=== PATIENT | male | born 1965 | race Caucasian/White ===

== ENCOUNTER 2016-12-24 08:26 | Inpatient (IN) | payer OTHER ==
[~2016-12-24] VITALS: Ht 185.4 cm; Wt 85.4 kg
--- NOTE | ~2016-12-24 | DS ---
[place], [place] DISCHARGE SUMMARY NAME: NAATLIE CARRILLO UNIT #: [id number] ROOM: 403 DOCTOR: TONO FRASER MD BIRTHDATE: [birth year] DOS: 12/25/2016 FINAL DIAGNOSES: Chronic obstructive pulmonary disease with acute exacerbation and chest pain, tachycardia, tobacco abuse, hypertension, hyperlipidemia, osteoporosis and sciatica. HOSPITAL COURSE: The patient is doing good. He does not have any chest pain. His CK and troponin levels are normal. CTA of chest is negative. CBC showed white count of 12,000, hemoglobin 15.5 and hematocrit 44.7. Hemoglobin A1c is 5.4. Basic metabolic profile showed glucose of 149. Other values are normal. Vitamin D and folic acid levels are also normal. His blood pressure is 114/74, pulse 57, respirations 18 and temperature 97.5. The patient will continue taking his home medications. He is very, very strongly advised to stop smoking and I have started him on Nicoderm patch 21 mg daily and he will be seen in the office next week by Dr. John . TONO FRASER MD CM:STEPHEN [id number] TONO FRASER MD 12/25/16 1242 interface
[~2016-12-24 08:26] MED LIST: 'PARAFON FORTE500 M1 PO; ALENDRONATE SOD70 M1 PO; ALENDRONATE SOD70 MG PO; AMOXICILLIN500 MG PO; CIPRO500 MG PO; CLARITIN10 MG PO; CYCLOBENZAPRINE10 MG PO; DELTASONE20 M1 PO; FLEXERIL10 MG PO; FLEXERIL5 MG PO; FLONASE ALLERG9.9 ML NS; HYDROCODONE BIT1 T11 PO; IBU800 M1 PO; KETOPROFEN75 MG PO; LIPITOR20 MG PO; LISINOPRIL10 M1 PO; LOPRESSOR100 M1 PO; METOPROLOL SUC100 M1 PO; MOTRIN800 MG PO; NAPROSYN500 MG PO; NORCO 325 MG-51 TAB PO; OMEPRAZOLE D/R20 MG PO; OSCAL ULTRA 6001 TA1 PO; PEN-VK500 MG PO; PENICILLIN VK500 MG PO; PERCOCET 325 MG1 TA7 PO; PREDNICOT20 MG PO; PREDNISONE10 MG PO; PREDNISONE50 MG PO; PRILOSEC OTC20 MG PO; PROAIR HFA8.5 GM IH; PROVENTIL0.09 MG/AC IH; TESSALON PERLE200 MG PO; TRIMOX500 MG PO; VIBRAMYCIN100 MG PO; VICODIN ES 7501 TAB PO; VITAMIN D50000 I3 PO; ZYRTEC10 MG PO
[2016-12-24] MEDS ORDERED: CYCLOBENZAPRINE10 MG PO (08:43)
[2016-12-24] MEDS ORDERED: COZAAR100 MG PO (08:44)
[2016-12-24 09:02] LABS: BASO % 0.3 % (0.0-1.0); EOS # 0.1 10*3/uL (0.0-0.4); HEMATOCRIT 46.5 % (42.0-52.0); HEMOGLOBIN 16.3 g/dl (14.0-18.0); LYMPH # 1.6 10*3/uL (1.3-4.4); MEAN CELL VOLUME 90.8 fl (80.0-94.0); MEAN CORPUSCULAR HGB 31.8 pg (27.0-31.0); MEAN CORPUSCULAR HGB CONC 35.1 g/dl (33.0-37.0); MONO # 0.9 10*3/uL (0.1-1.0); MONO % 13.8 % (3.0-9.0); NEUT # 3.8 10*3/uL (2.3-7.9); NEUT % 58.7 % (47.0-73.0); PLATELET COUNT AUTOMATED 207 10*3/uL (130-400); RED BLOOD COUNT 5.12 10*6/uL (4.50-5.90); RED CELL DISTRI WIDTH 12.4 % (0-14.5); WHITE BLOOD COUNT 6.5 10*3/uL (4.8-10.8)
[2016-12-24 09:11] LABS: PROTHROMBIN TIME 10.1 SECONDS (9.0-12.4)
[2016-12-24 09:19] LABS: ALKALINE PHOSPHATASE 100 U/L (45-117); BILIRUBIN, TOTAL 0.5 mg/dl (0.2-1.0); BUN 10 mg/dl (7-24); C-REACTIVE PROTEIN 0.43 MG/DL (0-0.3); CARBON DIOXIDE 27 mmol/L (21-32); CHLORIDE 103 mmol/L (98-107); CKMB 0.7 ng/ml (0.5-3.6); CPK 77 U/L (39-308); EST GLOM FILT AFRICAN AMERICAN > 60 ml/min; GLUCOSE 104 mg/dL (65-99); MAGNESIUM 2.1 mg/dL (1.5-2.1); POTASSIUM 4.2 mmol/L (3.5-5.1); SGOT/AST 10 IU/L (3-35); SGPT/ALT 23 U/L (12-78); SODIUM 139 mmol/L (136-145); TOTAL PROTEIN 7.5 gm/dL (6.4-8.2)
[2016-12-24 09:21] LABS: TROPONIN I < 0.015 ng/ml (<0.045)
[2016-12-24 12:11] LABS: CKMB 0.8 ng/ml (0.5-3.6); CPK 71 U/L (39-308)
[2016-12-24 12:12] LABS: TROPONIN I < 0.015 ng/ml (<0.045)
[2016-12-24 18:09] LABS: CKMB 0.9 ng/ml (0.5-3.6); CPK 63 U/L (39-308)
[2016-12-24 18:11] LABS: TROPONIN I < 0.015 ng/ml (<0.045)
[2016-12-25 07:23] LABS: BASO % 0.1 % (0.0-1.0); HEMATOCRIT 44.7 % (42.0-52.0); HEMOGLOBIN 15.5 g/dl (14.0-18.0); IG # 0.1 10*3/uL (0.0-0.1); LYMPH # 1.4 10*3/uL (1.3-4.4); LYMPH % 11.7 % (27.0-41.0); MEAN CELL VOLUME 91.8 fl (80.0-94.0); MEAN CORPUSCULAR HGB 31.8 pg (27.0-31.0); MEAN CORPUSCULAR HGB CONC 34.7 g/dl (33.0-37.0); MEAN PLATELET VOLUME 9.1 fl (9.6-12.3); MONO # 0.8 10*3/uL (0.1-1.0); MONO % 6.6 % (3.0-9.0); NEUT # 9.7 10*3/uL (2.3-7.9); PLATELET COUNT AUTOMATED 224 10*3/uL (130-400); RED BLOOD COUNT 4.87 10*6/uL (4.50-5.90); RED CELL DISTRI WIDTH 12.2 % (0-14.5)
[2016-12-25 07:37] LABS: HEMOGLOBIN A1c 5.4 % (4.8-5.6)
[2016-12-25 07:49] LABS: BUN 14 mg/dl (7-24); CARBON DIOXIDE 25 mmol/L (21-32); CHLORIDE 105 mmol/L (98-107); CHOLESTEROL 183 mg/dL (<200); EST GLOM FILT AFRICAN AMERICAN > 60 ml/min; FREE T4 0.97 ng/dl (0.76-1.46); GLUCOSE 149 mg/dL (65-99); HDL CHOLESTEROL 40 mg/dl (40-60); LDL CHOLESTEROL 120 mg/dL (9-159); MAGNESIUM 2.1 mg/dL (1.5-2.1); PHOSPHOROUS 3.6 mg/dL (2.5-4.9); POTASSIUM 4.6 mmol/L (3.5-5.1); SODIUM 141 mmol/L (136-145); TRIGLYCERIDES 113 mg/dl (<150); VLDL CHOLESTEROL 23 mg/dL (6-40)
[2016-12-25 07:59] LABS: THYROID STIM HORMONE (HS) 0.371 uIU/ml (0.358-4.75)
[2016-12-25 08:09] LABS: FOLIC ACID 12.66 ng/mL (>5.38)
[2016-12-25] MEDS ORDERED: KROGER NIC21 MG/24 H T (12:04)
== END 2016-12-25 12:51 | disposition home or self-care (01) | DRG 391 ==
LOC: ED 08:26 → EDHOLD 10:04 → 4E 10:27
PROVIDERS: Emergency Medicine; Student in an Organized Health Care Education/Training Program
DX: K21.9 Gastro-esophageal reflux disease without esophagitis (principal); J18.9 Pneumonia, unspecified organism; J44.1 Chronic obstructive pulmonary disease with (acute) exacerbation; J44.0 Chronic obstructive pulmonary disease with (acute) lower respiratory infection; I10 Essential (primary) hypertension; R00.0 Tachycardia, unspecified; E78.5 Hyperlipidemia, unspecified; M81.0 Age-related osteoporosis without current pathological fracture; M54.30 Sciatica, unspecified side; F17.200 Nicotine dependence, unspecified, uncomplicated; Z82.3 Family history of stroke; Z80.1 Family history of malignant neoplasm of trachea, bronchus and lung; Z79.899 Other long term (current) drug therapy

== ENCOUNTER → 2017-03-24 | Outpatient (CLI) | payer OTHER ==
[~2017-03-24] MED LIST changes: +COZAAR100 MG PO; +KROGER NIC21 MG/24 H T
== END | disposition home or self-care (01) ==
LOC: RAD 15:23
DX: M54.5 Low back pain (principal); M81.0 Age-related osteoporosis without current pathological fracture

== ENCOUNTER 2017-04-05 15:38 | Emergency (ER) | payer OTHER ==
[~2017-04-05] VITALS: Ht 185.4 cm; Wt 82.6 kg
[2017-04-05] MEDS ORDERED: GOOD NEIGHBOR L10 MG PO (15:45)
[2017-04-05] MEDS ORDERED: CYCLOBENZAPRINE5 M3 PO (16:54)
[2017-04-05] MEDS ORDERED: MEDROL DOSEPAK4 MG PO (16:54)
== END 2017-04-05 19:55 | disposition home or self-care (01) ==
LOC: ED 15:38
DX: G89.29 Other chronic pain (principal); M54.5 Low back pain; F17.200 Nicotine dependence, unspecified, uncomplicated; Z79.899 Other long term (current) drug therapy

== ENCOUNTER 2017-05-10 20:56 | Emergency (ER) | payer OTHER ==
[~2017-05-10] VITALS: Ht 185.4 cm; Wt 81.2 kg
[~2017-05-10 20:56] MED LIST changes: +CYCLOBENZAPRINE5 M3 PO; +GOOD NEIGHBOR L10 MG PO; +MEDROL DOSEPAK4 MG PO
[2017-05-10] MEDS ORDERED: LOSARTAN POTAS100 M1 PO (21:07)
== END 2017-05-10 21:39 | disposition home or self-care (01) ==
LOC: ED 20:56
DX: S81.811A Laceration without foreign body, right lower leg, initial encounter (principal); J44.9 Chronic obstructive pulmonary disease, unspecified; E78.5 Hyperlipidemia, unspecified; I10 Essential (primary) hypertension; M81.0 Age-related osteoporosis without current pathological fracture; Z79.899 Other long term (current) drug therapy; Z87.891 Personal history of nicotine dependence; W45.8XXA Other foreign body or object entering through skin, initial encounter; Y93.89 Activity, other specified; Y92.89 Other specified places as the place of occurrence of the external cause; Y99.8 Other external cause status

== ENCOUNTER 2017-07-14 13:05 | Emergency (ER) | payer OTHER ==
[~2017-07-14] VITALS: Ht 182.8 cm; Wt 80.3 kg
[~2017-07-14 13:05] MED LIST changes: +LOSARTAN POTAS100 M1 PO
[2017-07-14] MEDS ORDERED: NAPROSYN500 MG PO (13:57)
== END 2017-07-14 14:37 | disposition home or self-care (01) ==
LOC: ED 13:05
DX: M25.561 Pain in right knee (principal); F17.200 Nicotine dependence, unspecified, uncomplicated

== ENCOUNTER 2017-07-27 12:16 | Emergency (ER) | payer OTHER ==
[~2017-07-27] VITALS: Ht 182.8 cm; Wt 82.1 kg
[2017-07-27] MEDS ORDERED: ULTRAM50 MG PO (13:06)
== END 2017-07-27 14:32 | disposition home or self-care (01) ==
LOC: ED 12:16
DX: M25.561 Pain in right knee (principal); Z79.899 Other long term (current) drug therapy; F17.200 Nicotine dependence, unspecified, uncomplicated

== ENCOUNTER 2017-09-08 13:56 | Emergency (ER) | payer OTHER ==
[~2017-09-08] VITALS: Wt 83.0 kg
[~2017-09-08 13:56] MED LIST changes: +ULTRAM50 MG PO
== END 2017-09-08 15:18 | disposition home or self-care (01) ==
LOC: ED 13:56
DX: M25.461 Effusion, right knee (principal); F17.200 Nicotine dependence, unspecified, uncomplicated; J44.1 Chronic obstructive pulmonary disease with (acute) exacerbation; I10 Essential (primary) hypertension; E78.5 Hyperlipidemia, unspecified

== ENCOUNTER 2017-09-26 11:43 | Emergency (ER) | payer OTHER ==
[~2017-09-26] VITALS: Ht 185.4 cm; Wt 83.0 kg
[2017-09-26] MEDS ORDERED: NAPROSYN500 MG PO (12:08)
== END 2017-09-26 12:18 | disposition home or self-care (01) ==
LOC: ED 11:43
DX: M25.561 Pain in right knee (principal); F17.210 Nicotine dependence, cigarettes, uncomplicated; Z79.899 Other long term (current) drug therapy

== ENCOUNTER → 2017-10-06 | Outpatient (CLI) | payer OTHER | END | disposition home or self-care (01) | LOC: MRI 11:00 | DX: Z01.818 Encounter for other preprocedural examination (principal); S83.231A Complex tear of medial meniscus, current injury, right knee, initial encounter; S83.211A Bucket-handle tear of medial meniscus, current injury, right knee, initial encounter; S86.911A Strain of unspecified muscle(s) and tendon(s) at lower leg level, right leg, initial encounter; X58.XXXA Exposure to other specified factors, initial encounter; Y93.89 Activity, other specified; Y92.89 Other specified places as the place of occurrence of the external cause; Y99.8 Other external cause status ==

== ENCOUNTER 2017-11-17 18:00 | Emergency (ER) | payer OTHER ==
[~2017-11-17] VITALS: Ht 185.4 cm; Wt 80.7 kg
[2017-11-17] MEDS ORDERED: NAPROSYN500 MG PO (18:35)
[2017-11-17] MEDS ORDERED: CEPHALEXIN500 M1 PO (18:35)
== END 2017-11-17 18:41 | disposition home or self-care (01) ==
LOC: ED 18:00
DX: L03.012 Cellulitis of left finger (principal); F17.200 Nicotine dependence, unspecified, uncomplicated; Z98.890 Other specified postprocedural states; Z79.899 Other long term (current) drug therapy

== ENCOUNTER 2017-12-29 12:41 | Emergency (ER) | payer OTHER ==
[~2017-12-29] VITALS: Ht 185.4 cm; Wt 83.5 kg
[~2017-12-29 12:41] MED LIST changes: +CEPHALEXIN500 M1 PO
[2017-12-29] MEDS ORDERED: PREDNISONE50 MG PO (13:08)
== END 2017-12-29 13:19 | disposition home or self-care (01) ==
LOC: ED 12:41
DX: G89.29 Other chronic pain (principal); M54.5 Low back pain; M25.561 Pain in right knee; J44.9 Chronic obstructive pulmonary disease, unspecified; E78.5 Hyperlipidemia, unspecified; I10 Essential (primary) hypertension; M81.0 Age-related osteoporosis without current pathological fracture; F17.200 Nicotine dependence, unspecified, uncomplicated; Z79.899 Other long term (current) drug therapy

== ENCOUNTER → 2018-01-19 | Outpatient (CLI) | payer OTHER ==
[~2018-01-19] MED LIST changes: +TRAMADOL HCL50 MG PO
[2018-01-19 10:18] LABS: BASO # 0.1 10*3/uL (0.0-0.1); BASO % 0.7 % (0.0-1.0); BILIRUBIN NEGATIVE (NEGATIVE); BLOOD NEGATIVE (NEGATIVE); CLARITY CLEAR (CLEAR); COLOR YELLOW (YELLOW); EOS # 0.1 10*3/uL (0.0-0.4); EOS % 1.4 % (1.0-4.0); GLUCOSE NEGATIVE (NEGATIVE); HEMATOCRIT 47.6 % (42.0-52.0); HEMOGLOBIN 16.6 g/dl (14.0-18.0); KETONE NEGATIVE (NEGATIVE); LEUKO ESTERASE NEGATIVE (NEGATIVE); LYMPH # 2.8 10*3/uL (1.3-4.4); LYMPH % 32.2 % (27.0-41.0); MEAN CELL VOLUME 90.2 fl (80.0-94.0); MEAN CORPUSCULAR HGB 31.4 pg (27.0-31.0); MEAN CORPUSCULAR HGB CONC 34.9 g/dl (33.0-37.0); MONO # 0.7 10*3/uL (0.1-1.0); MONO % 8.2 % (3.0-9.0); NEUT # 4.9 10*3/uL (2.3-7.9); NITRITE NEGATIVE (NEGATIVE); PLATELET COUNT AUTOMATED 258 10*3/uL (130-400); RED BLOOD COUNT 5.28 10*6/uL (4.50-5.90); RED CELL DISTRI WIDTH 12.1 % (0-14.5); SPECIFIC GRAVITY <= 1.005 (1.005-1.030); UROBILINOGEN 0.2 E.U./dl (0.2-1.0); WHITE BLOOD COUNT 8.6 10*3/uL (4.8-10.8)
[2018-01-19 10:40] LABS: ALBUMIN 4.1 gm/dl (3.1-4.5); ALKALINE PHOSPHATASE 112 U/L (45-117); BUN 13 mg/dl (7-24); CHLORIDE 104 mmol/L (98-107); CREATININE 0.87 mg/dL (0.70-1.30); POTASSIUM 4.4 mmol/L (3.5-5.1); SGOT/AST 11 IU/L (3-35); SGPT/ALT 20 U/L (12-78); SODIUM 137 mmol/L (136-145); TOTAL PROTEIN 7.4 gm/dL (6.4-8.2)
[2018-01-19 11:01] LABS: BACTERIA TRACE; COARSE GRANULAR CAST 0-2; EPITHELIAL CELLS 0-2
== END | disposition home or self-care (01) ==
LOC: LAB 08:52
PROVIDERS: Orthopaedic Surgery
DX: S81.011A Laceration without foreign body, right knee, initial encounter (principal); M94.261 Chondromalacia, right knee; X58.XXXA Exposure to other specified factors, initial encounter; Y92.89 Other specified places as the place of occurrence of the external cause; Y93.89 Activity, other specified; Y99.8 Other external cause status

== ENCOUNTER → 2018-01-26 | Day surgery (SDC) | payer OTHER ==
[~2018-01-26] VITALS: Ht 185.4 cm; Wt 82.6 kg
[~2018-01-26] MED LIST changes: +PERCOCET 5-3251 EACH PO; +ZOFRAN4 MG PO
[2018-01-26 08:26] VITALS: BP 163/90
[2018-01-26 11:18] VITALS: BP 131/73
[2018-01-26 11:33] VITALS: BP 115/73
[2018-01-26 11:48] VITALS: BP 117/79
[2018-01-26 12:03] VITALS: BP 126/87
[2018-01-26 12:18] VITALS: BP 123/78
== END | disposition home or self-care (01) ==
LOC: SDC 01-19 08:45
DX: S83.211A Bucket-handle tear of medial meniscus, current injury, right knee, initial encounter (principal); M81.0 Age-related osteoporosis without current pathological fracture; Z82.49 Family history of ischemic heart disease and other diseases of the circulatory system; M22.41 Chondromalacia patellae, right knee; M17.11 Unilateral primary osteoarthritis, right knee; I10 Essential (primary) hypertension; K21.9 Gastro-esophageal reflux disease without esophagitis; J45.909 Unspecified asthma, uncomplicated; F17.210 Nicotine dependence, cigarettes, uncomplicated; Z79.899 Other long term (current) drug therapy; X58.XXXA Exposure to other specified factors, initial encounter; Y93.89 Activity, other specified; Y92.89 Other specified places as the place of occurrence of the external cause; Y99.8 Other external cause status

== ENCOUNTER 2018-03-21 14:15 | Emergency (ER) | payer OTHER ==
[~2018-03-21] VITALS: Ht 185.4 cm; Wt 83.0 kg
[2018-03-21] MEDS ORDERED: CYCLOBENZAPRINE10 MG PO (16:46)
[2018-03-21] MEDS ORDERED: NAPROSYN500 MG PO (16:46)
== END 2018-03-21 16:50 | disposition home or self-care (01) ==
LOC: ED 14:15
DX: M54.6 Pain in thoracic spine (principal); G89.29 Other chronic pain; E78.5 Hyperlipidemia, unspecified; I10 Essential (primary) hypertension; F17.200 Nicotine dependence, unspecified, uncomplicated; Z98.890 Other specified postprocedural states; Z79.899 Other long term (current) drug therapy

== ENCOUNTER 2018-04-24 12:56 | Emergency (ER) | payer OTHER ==
[~2018-04-24] VITALS: Ht 185.4 cm; Wt 82.6 kg
[2018-04-24] MEDS ORDERED: CHLORZOXAZONE500 M2 PO (13:07)
[2018-04-24] MEDS ORDERED: PREDNISONE10 MG PO (13:07)
[2018-05-03] MEDS ORDERED: HYDROCHLOROTHIA25 M1 PO (07:27)
[2018-05-03] MEDS ORDERED: ALENDRONATE SOD70 M1 PO (07:28)
[2018-05-03] MEDS ORDERED: POTASSIUM99 M5 PO (07:29)
[2018-05-04] MEDS ORDERED: VITAMIN D-32000 UNIT PO (15:42)
[2018-05-04] MEDS ORDERED: CRESTOR10 M1 PO (15:45)
== END 2018-04-24 13:17 | disposition home or self-care (01) ==
LOC: ED 12:56
DX: G89.29 Other chronic pain (principal); M54.41 Lumbago with sciatica, right side; I10 Essential (primary) hypertension; J44.9 Chronic obstructive pulmonary disease, unspecified; E78.5 Hyperlipidemia, unspecified; M81.0 Age-related osteoporosis without current pathological fracture; F17.200 Nicotine dependence, unspecified, uncomplicated; Z79.899 Other long term (current) drug therapy

== ENCOUNTER → 2018-04-27 | Outpatient (CLI) | payer OTHER ==
[~2018-04-27] MED LIST changes: +CHLORZOXAZONE500 M2 PO; +CRESTOR10 M1 PO; +HYDROCHLOROTHIA25 M1 PO; +POTASSIUM99 M5 PO; +VITAMIN D-32000 UNIT PO
== END ==
LOC: RAD 11:29
DX: M81.0 Age-related osteoporosis without current pathological fracture (principal)

== ENCOUNTER 2018-08-07 06:53 | Emergency (ER) | payer OTHER ==
[~2018-08-07] VITALS: Ht 185.4 cm; Wt 83.0 kg
[2018-08-07] MEDS ORDERED: Motrin,Rufen800 MG PO (09:08)
== END 2018-08-07 09:22 | disposition home or self-care (01) ==
LOC: ED 06:53
DX: S29.012A Strain of muscle and tendon of back wall of thorax, initial encounter (principal); M81.0 Age-related osteoporosis without current pathological fracture; G89.29 Other chronic pain; J44.9 Chronic obstructive pulmonary disease, unspecified; E78.5 Hyperlipidemia, unspecified; I10 Essential (primary) hypertension; F17.200 Nicotine dependence, unspecified, uncomplicated; Z79.899 Other long term (current) drug therapy; X58.XXXA Exposure to other specified factors, initial encounter; Y93.89 Activity, other specified; Y92.89 Other specified places as the place of occurrence of the external cause; Y99.8 Other external cause status

== ENCOUNTER 2018-09-06 12:31 | Emergency (ER) | payer OTHER ==
[~2018-09-06] VITALS: Ht 185.4 cm; Wt 79.4 kg
[~2018-09-06 12:31] MED LIST changes: +Motrin,Rufen800 MG PO
== END 2018-09-06 15:36 | disposition home or self-care (01) ==
LOC: ED 12:31
DX: M25.522 Pain in left elbow (principal); J44.9 Chronic obstructive pulmonary disease, unspecified; G89.29 Other chronic pain; E78.5 Hyperlipidemia, unspecified; I10 Essential (primary) hypertension; F17.200 Nicotine dependence, unspecified, uncomplicated; Z79.899 Other long term (current) drug therapy; X50.1XXA Overexertion from prolonged static or awkward postures, initial encounter; Y93.E9 Activity, other interior property and clothing maintenance; Y92.098 Other place in other non-institutional residence as the place of occurrence of the external cause; Y99.8 Other external cause status

== ENCOUNTER 2019-01-23 09:08 | Inpatient (IN) | payer OTHER ==
[~2019-01-23] VITALS: Ht 185 cm; Wt 80.9 kg
--- NOTE | ~2019-01-23 | EKG ---
[place], [place] ELECTROCARDIOGRAM REPORT NAME: NATALIE CARRILLO UNIT #: [id number] ROOM: 511 DOCTOR: VAN DRAFT REPORT BIRTHDATE: [birth year] [facility] Test Date: 2019-01-23 Test Time: 12:17:16 Pat Name: NATALIE CARRILLO Department: Room: 511 Gender: M Clerical Transcriber: Angelika Cerrato : 1965 Requested By: NATALIE HAQUE Order Number: [id number] Reading MD: Joce New MD Measurements Intervals [place] Rate: 82 P: 78 MA: 137 QRS: 113 QRSD: 93 T: 60 QT: 390 QTc: 456 Interpretive Statements Sinus rhythm Consider right ventricular hypertrophy Compared to ECG 05/03/2018 12:52:41 ST (T wave) deviation no longer present Electronically Signed On 01-24-2019 9:39:41 PDT by Joce New MD CM:EKGRPT:ELECTROCARDIOGRAM REPORT [id number] NATALIE DORADO DRAFT REPORT NATALIE HAQUE DO
--- NOTE | ~2019-01-23 | EKG ---
[place], [place] ELECTROCARDIOGRAM REPORT NAME: NATALIE CARRILLO UNIT #: [id number] ROOM: 511 DOCTOR: VAN DRAFT REPORT BIRTHDATE: [birth year] [facility] Test Date: 2019-01-23 Test Time: 09:12:45 Pat Name: NATALIE CARRILLO Department: Room: 511 Gender: M Shoe Designer: : 1965 Requested By: NATALIE HAQUE Order Number: [id number] Reading MD: Joce New MD Measurements Intervals [place] Rate: 104 P: 77 AL: 136 QRS: 117 QRSD: 97 T: 55 QT: 344 QTc: 453 Interpretive Statements Sinus tachycardia LAE, consider biatrial enlargement Right axis deviation Compared to ECG 05/03/2018 12:52:41 Right-axis deviation now present Sinus rhythm no longer present ST (T wave) deviation no longer present Electronically Signed On 01-24-2019 9:39:25 PDT by Joce New MD CM:EKGRPT:ELECTROCARDIOGRAM REPORT 1 NATALIE DORADO DRAFT REPORT NATALIE HAQUE DO
--- NOTE | ~2019-01-23 | CON ---
[place], [place] REPORT OF CONSULTATION NAME: NATALIE CARRILLO UNIT #: [id number] ROOM: 511 DOCTOR: LUZ GILBERT MD BIRTHDATE: [birth year] DOS: 01/24/2019 INPATIENT CONSULT NOTE CHIEF COMPLAINT: Right knee pain. HISTORY OF PRESENT ILLNESS: This is a pleasant 53-year-old man with right knee pain. He is admitted to the hospital for cardiac issues and left-sided chest pain. He says that the workup has been negative and he is being discharged in a couple of hours. He has right knee pain and was supposed to see Dr. Franco as an outpatient today. He is admitted as an inpatient. Therefore, I was consulted to come and see him. Overall, right knee is functioning pretty well, but he gets pain if he is active for a long time. Sometimes, he is up on his knees working for hours at a time and that becomes sore for him. Current pain level is about 2-3 on a scale of 1-10 with 10 being the worst, and it is improving because he is staying off of it. No fevers. No chills. Pain is located along the medial and lateral aspects of the right knee. No radiation of pain. No pain in the right hip. No specific trauma that he can recall. He is status post right knee arthroscopy by Dr. Franco. PAST MEDICAL AND SURGICAL HISTORY: 1. Hyperlipidemia. 2. Hypertension. 3. Osteoporosis. 4. Current tobacco use. 5. Status post left inguinal hernia repair. 6. Status post carpal tunnel surgery. 7. Status post right knee arthroscopy. ALLERGIES TO MEDICINE: None. SOCIAL HISTORY: No illicit drug use. Minimal alcohol use. He does smoke 2 packs a day. 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 He is a community ambulator. REVIEW OF SYSTEMS: A 10-point review of systems was conducted and is negative, except for pertinent positives with the history of present illness. PHYSICAL EXAMINATION: GENERAL APPEARANCE: He is well. He is oriented to person, place and time. PSYCHIATRIC: Mood euthymic. Affect appropriate. MUSCULOSKELETAL: I examined the right knee. Skin is intact. No effusion. He has medial joint line tenderness. Motion is 3 degrees to 115 degrees. Knee is stable to anterior, posterior, varus, valgus stresses. No effusion. Painless range of motion. He can do a straight leg raise with 5-degree lag. I examined the right hip. No pain with log roll. I examined the left knee. No effusion. No joint line tenderness. Full range of motion. [place], [place] REPORT OF CONSULTATION NAME: NATALIE CARRILLO UNIT #: [id number] ROOM: 511 DOCTOR: LUZ GILBERT MD BIRTHDATE: [birth year] IMAGING: I do not see any recent x-rays for my review. ASSESSMENT: A 53-year-old man with right knee probable arthritis and meniscus tear. There is no indication for acute surgical intervention. I discussed this with the patient in detail. He has got good range of motion and strength today. No effusion. I recommend outpatient followup with Dr. Bina Franco in the Orthopedic Surgery office. I did inform the patient that today is my last day at [facility]. I will follow up with Dr. Bina Franco. He understands. Dr. Franco is well known to him as she performed surgery on his right knee already in the past. The patient had the opportunity to ask me questions, he understands and agrees with the treatment plan as I have outlined it. Luz Gilbert MD CM:CONSTR:REPORT OF CONSULTATION 1516 01/25/19 0012 interface
--- NOTE | ~2019-01-23 | EKG ---
[place], [place] ELECTROCARDIOGRAM REPORT NAME: NATALIE CARRILLO UNIT #: [id number] ROOM: 511 DOCTOR: VAN DRAFT REPORT BIRTHDATE: [birth year] [facility] Test Date: 2019-01-23 Test Time: 15:37:36 Pat Name: NATALIE CARRILLO Department: Room: 511 Gender: M [employer] Officer: Karina Serna : 1965 Requested By: NATALIE HAQUE Order Number: [id number] Reading MD: Joce New MD Measurements Intervals [place] Rate: 91 P: 80 RI: 146 QRS: 111 QRSD: 92 T: 64 QT: 359 QTc: 442 Interpretive Statements Sinus rhythm Consider right ventricular hypertrophy Compared to ECG 05/03/2018 12:52:41 ST (T wave) deviation no longer present Electronically Signed On 01-24-2019 9:40:16 PDT by Joce New MD CM:EKGRPT:ELECTROCARDIOGRAM REPORT 1537 0940 NATALIE DORADO DRAFT REPORT NATALIE HAQUE DO
[~2019-01-23 09:08] MED LIST changes: +IBU800 MG PO
[2019-01-23 09:21] VITALS: BP 110/71
[2019-01-23 09:33] LABS: BASO # 0.1 10*3/uL (0.0-0.1); BASO % 0.6 % (0.0-1.0); EOS # 0.1 10*3/uL (0.0-0.4); EOS % 0.5 % (1.0-4.0); HEMATOCRIT 46.9 % (42.0-52.0); HEMOGLOBIN 16.6 g/dl (14.0-18.0); LYMPH # 2.1 10*3/uL (1.3-4.4); LYMPH % 20.2 % (27.0-41.0); MEAN CELL VOLUME 93.2 fl (80.0-94.0); MEAN CORPUSCULAR HGB CONC 35.4 g/dl (33.0-37.0); MEAN PLATELET VOLUME 8.9 fl (9.6-12.3); MONO # 0.7 10*3/uL (0.1-1.0); MONO % 6.5 % (3.0-9.0); NEUT # 7.6 10*3/uL (2.3-7.9); NEUT % 71.8 % (47.0-73.0); PLATELET COUNT AUTOMATED 285 10*3/uL (130-400); RED BLOOD COUNT 5.03 10*6/uL (4.50-5.90); RED CELL DISTRI WIDTH 12.5 % (0-14.5); WHITE BLOOD COUNT 10.5 10*3/uL (4.8-10.8)
[2019-01-23 10:00] VITALS: BP 108/66
[2019-01-23 10:01] LABS: ACT PARTIAL THROMBO TIME 23.8 SECONDS (20.8-31.5); INTERNATIONAL NORM RATIO 0.9 (2.0-3.5)
[2019-01-23 10:13] LABS: ALBUMIN 3.7 gm/dl (3.1-4.5); ALKALINE PHOSPHATASE 75 U/L (45-117); BUN 8 mg/dl (7-24); CHLORIDE 104 mmol/L (98-107); CREATININE 0.89 mg/dL (0.70-1.30); POTASSIUM 3.4 mmol/L (3.5-5.1); SGOT/AST 12 IU/L (3-35); SGPT/ALT 21 U/L (12-78); SODIUM 138 mmol/L (136-145); TOTAL PROTEIN 6.8 gm/dL (6.4-8.2)
[2019-01-23 10:15] LABS: TROPONIN I < 0.015 ng/ml (<0.045)
--- NOTE | 2019-01-23 10:20 | NUR ---
PT POSITIONED FOR COMFORT AND NO ADDITIONAL COMPLAINTS VOICED,SAFETY PRECAUTIONS INTACT AND CALL LIGHT WITHIN REACH.
[2019-01-23 10:45] VITALS: BP 107/64
--- NOTE | 2019-01-23 11:00 | NUR ---
A 53, admitted to 5E, under the services of NAHID Mantilla MD with a diagnosis of CHEST PAIN UNSPECIFIED. Chief complaint is CHEST PAIN. Patient arrived via ambulatory from ER. Monitor applied. Initial assessment completed. Vital signs taken and recorded. NAHID MANTILLA MD notified of admission to the unit. Orders received. See assessment for past medical history, medications and allergies. Patient and/or family oriented to unit. [facility]E. visitation policy reviewed. Clothing/patient valuable form completed. SKIN INTACT WITH NO WOUNDS. DECLINES FLU AND PNEUMONIA VACCINATION. DEE FRY
[2019-01-23 12:00] VITALS: BP 107/64; BP 98/76
[2019-01-23 12:44] LABS: TROPONIN I < 0.015 ng/ml (<0.045)
[2019-01-23 12:46] LABS: THYROID STIM HORMONE (HS) 0.527 uIU/ml (0.358-4.75)
--- NOTE | 2019-01-23 13:12 | NUR ---
CALLED DR ZEPEDA REGARDING PT REQUEST FOR NICOTINE PATCH. WAITING ON [place] BACK
--- NOTE | 2019-01-23 13:29 | NUR ---
DR ZEPEDA RETURNED CALL. ORDER RECIEVED FOR NICOTINE PATCH AND CONTINUE HOME MEDS.
[2019-01-23 16:00] VITALS: BP 147/81
[2019-01-23 20:00] VITALS: BP 140/78
[2019-01-24] VITALS: BP 138/71
--- NOTE | 2019-01-24 00:06 | NUR ---
CALLED FOR PT ON WANTING [facility]EP [facility]ID. ORDERS PENDING.
[2019-01-24 06:23] LABS: BASO # 0.1 10*3/uL (0.0-0.1); BASO % 0.6 % (0.0-1.0); EOS # 0.1 10*3/uL (0.0-0.4); EOS % 1.1 % (1.0-4.0); HEMATOCRIT 45.7 % (42.0-52.0); HEMOGLOBIN 15.6 g/dl (14.0-18.0); LYMPH # 2.6 10*3/uL (1.3-4.4); LYMPH % 28.8 % (27.0-41.0); MEAN CORPUSCULAR HGB 32.1 pg (27.0-31.0); MEAN CORPUSCULAR HGB CONC 34.1 g/dl (33.0-37.0); MONO # 0.8 10*3/uL (0.1-1.0); MONO % 9.1 % (3.0-9.0); NEUT # 5.4 10*3/uL (2.3-7.9); NEUT % 60.1 % (47.0-73.0); PLATELET COUNT AUTOMATED 238 10*3/uL (130-400); RED BLOOD COUNT 4.86 10*6/uL (4.50-5.90); RED CELL DISTRI WIDTH 12.4 % (0-14.5)
[2019-01-24 06:53] LABS: ALBUMIN 3.3 gm/dl (3.1-4.5); ALKALINE PHOSPHATASE 66 U/L (45-117); BUN 11 mg/dl (7-24); CHLORIDE 104 mmol/L (98-107); CREATININE 0.71 mg/dL (0.70-1.30); POTASSIUM 3.7 mmol/L (3.5-5.1); SGOT/AST 8 IU/L (3-35); SGPT/ALT 20 U/L (12-78); SODIUM 139 mmol/L (136-145); TOTAL PROTEIN 6.3 gm/dL (6.4-8.2)
[2019-01-24 08:00] VITALS: BP 110/62
--- NOTE | 2019-01-24 08:00 | NUR ---
Library Information Technician in to talk to patient. Patient states lives at home alone. There are 4 steps in the home. Physician: Dr. Geovani John Pharmacy: [facility] Home health services: none Patient's level of ADLs: INDEPENDENT Patient has working utilities: yes DME: none Follow-up physician's appointment after d/c: he prefers to make his own follow up appt after discharge Does patient want to access PORTAL?: no Discharge plan discussed with patient. He lives at home alone. He and his girlfriend of 9 years are having difficulties and they are trying to work through it. Currently they each have a place of their own. He is worried about her as she was discharged yesterday from [facility] for hernia surgery. He states after his test today he is leaving one way or another because he needs to get home to take care of his girlfriend. He is independent in his ADLs and ambulation. Discussed home health care services and he denies any home needs at this time. When medically stable he will be discharged to home. ZAKIYA NÚÑEZ
--- NOTE | 2019-01-24 08:01 | NUR ---
DR ZEPEDA NOTIFIED THAT PT IS C/O BACK PAIN AND THREATENING TO LEAVE. PT IS UNABLE TO HAVE MEDS PO AT THIS TIME DUE TO STRESS TEST SCHEDULED FOR THIS AM. NEW ORDERS RECEIVED FOR 0.5 DILAUDID VIA IV NOW. PT AWARE OF NEW ORDERS, WILL MEDICATE WHEN AVAILABLE TO PULL.
--- NOTE | 2019-01-24 10:55 | NUR ---
INFORMED CONSENT OBTAINED FOR LEXISCAN NUCLEAR STRESS TEST WITH DR. ZEPEDA. RESTING EKG NSR WITH A HR OF 75 WITH BP 90/64. LUNGS CLEAR WITH SPO2 100% ON ROOM AIR. PT COMPLETED A 1:00 LEXISCAN PROTOCOL RECEIVING LEXISCAN 0.4 MG IV OVER 10 SECONDS. HAD NO CHEST PAIN OR ANY EKG CHANGES. C/O "WARM FEELING" THAT WAS RELIEVED IN RECOVERY. HAD A PEAK HR OF 109 WITH BP OF 130/76. LAST RECOVERY HR OF 101 WITH BP OF 124/66. AWAITING SCANNING IN STABLE CONDITION.
[2019-01-24 12:00] VITALS: BP 103/81
--- NOTE | 2019-01-24 12:00 | NUR ---
CONSULT CALLED TO DR DONOVAN PER PHYSICIAN ORDER. SEATER GRINDER STATES THAT DR ROMO WILL BE UP TO SEE PT.
[2019-01-24 12:42] VITALS: BP 110/60
--- NOTE | 2019-01-24 16:05 | NUR ---
CALLED DR PARIS REGARDING PT STRESS/ECHO TESTS. PHYSICIAN STATES HE WILL WILL READ TESTS AND BE UP TO SEE PT.
--- NOTE | 2019-01-24 16:45 | NUR ---
Discharge instructions reviewed with patient/family. Patient receptive and verbalizes understanding. Follow-up care arranged. Written instructions given to patient/family. ABBE HERNANDEZ
[2019-04-26] MEDS ORDERED: CITALOPRAM20 MG PO (13:54)
[2019-04-26] MEDS ORDERED: OMEPRAZOLE D/R20 MG PO (13:55)
[2019-04-26] MEDS ORDERED: CYCLOBENZAPRINE10 MG PO (13:55)
[2019-04-26] MEDS ORDERED: IBU800 M1 PO (13:57)
[2019-04-26] MEDS ORDERED: ARTHROTEC50 MG PO (13:58)
[2019-04-27] MEDS ORDERED: DOXYCYCLINE100 M3 PO (13:09)
[2019-04-27] MEDS ORDERED: FLAGYL500 MG PO (13:09)
== END 2019-01-24 16:45 | disposition home or self-care (01) | DRG 313 ==
LOC: ED 09:08 → EDHOLD 10:24 → 5E 10:24
PROVIDERS: Emergency Medicine; ADMIT Internal Medicine
PROC: 4A02XM4 Measurement of Cardiac Total Activity, External Approach (ICD-10-PCS; principal; 2019-01-24)
PROC: 3E073KZ Introduction of Other Diagnostic Substance into Coronary Artery, Percutaneous Approach (ICD-10-PCS; 2019-01-24)
DX: R07.89 Other chest pain (principal); M81.0 Age-related osteoporosis without current pathological fracture; E78.2 Mixed hyperlipidemia; M79.622 Pain in left upper arm; E87.6 Hypokalemia; R73.9 Hyperglycemia, unspecified; D72.810 Lymphocytopenia; M25.561 Pain in right knee; I35.8 Other nonrheumatic aortic valve disorders; F17.210 Nicotine dependence, cigarettes, uncomplicated; I10 Essential (primary) hypertension; K21.9 Gastro-esophageal reflux disease without esophagitis; R00.0 Tachycardia, unspecified; J44.9 Chronic obstructive pulmonary disease, unspecified; Z71.6 Tobacco abuse counseling; Z82.3 Family history of stroke; Z82.49 Family history of ischemic heart disease and other diseases of the circulatory system; Z80.1 Family history of malignant neoplasm of trachea, bronchus and lung; Z83.3 Family history of diabetes mellitus; Z79.899 Other long term (current) drug therapy

== ENCOUNTER → 2019-02-09 | Outpatient (CLI) | payer OTHER ==
[~2019-02-09] MED LIST changes: +ARTHROTEC50 MG PO; +CITALOPRAM20 MG PO; +DOXYCYCLINE100 M3 PO; +FLAGYL500 MG PO; +FOSAMAX70 M1 PO; +NEURONTIN300 MG PO; +ROBAXIN500 M1 PO
== END | disposition home or self-care (01) ==
LOC: ORTHO 03:20
DX: M17.11 Unilateral primary osteoarthritis, right knee (principal)

== ENCOUNTER 2019-03-14 10:33 | Emergency (ER) | payer OTHER ==
[~2019-03-14] VITALS: Ht 185.4 cm; Wt 79.4 kg
[~2019-03-14 10:33] MED LIST changes: -ARTHROTEC50 MG PO; -CITALOPRAM20 MG PO; -DOXYCYCLINE100 M3 PO; -FLAGYL500 MG PO; -FOSAMAX70 M1 PO; -NEURONTIN300 MG PO; -ROBAXIN500 M1 PO
[2019-03-14] MEDS ORDERED: PREDNISONE50 MG PO (12:51)
[2019-03-14] MEDS ORDERED: ROBAXIN500 M1 PO (12:51)
[2019-04-26] MEDS ORDERED: CITALOPRAM20 MG PO (13:54)
[2019-04-26] MEDS ORDERED: CYCLOBENZAPRINE10 MG PO (13:55)
[2019-04-26] MEDS ORDERED: OMEPRAZOLE D/R20 MG PO (13:55)
[2019-04-26] MEDS ORDERED: IBU800 M1 PO (13:57)
[2019-04-26] MEDS ORDERED: ARTHROTEC50 MG PO (13:58)
[2019-04-27] MEDS ORDERED: FLAGYL500 MG PO (13:09)
[2019-04-27] MEDS ORDERED: DOXYCYCLINE100 M3 PO (13:09)
== END 2019-03-14 12:54 | disposition home or self-care (01) ==
LOC: ED 10:33
DX: M54.5 Low back pain (principal); R20.2 Paresthesia of skin; R20.0 Anesthesia of skin; M54.6 Pain in thoracic spine; I10 Essential (primary) hypertension; J45.909 Unspecified asthma, uncomplicated; K21.9 Gastro-esophageal reflux disease without esophagitis; F17.200 Nicotine dependence, unspecified, uncomplicated; Z79.899 Other long term (current) drug therapy

== ENCOUNTER → 2019-06-14 | Outpatient (CLI) | payer OTHER ==
[~2019-06-14] MED LIST changes: +ARTHROTEC50 MG PO; +CITALOPRAM20 MG PO; +DOXYCYCLINE100 M3 PO; +FLAGYL500 MG PO; +ROBAXIN500 M1 PO
== END | disposition home or self-care (01) ==
LOC: MRI 13:38
DX: M48.04 Spinal stenosis, thoracic region (principal); M47.814 Spondylosis without myelopathy or radiculopathy, thoracic region; M43.9 Deforming dorsopathy, unspecified; M81.0 Age-related osteoporosis without current pathological fracture; I10 Essential (primary) hypertension; M51.24 Other intervertebral disc displacement, thoracic region

== ENCOUNTER 2019-06-19 09:14 | Inpatient (IN) | payer OTHER ==
[~2019-06-19] VITALS: Ht 185.4 cm; Wt 85.4 kg
[2019-06-19 09:17] VITALS: BP 139/79
[2019-06-19 09:31] LABS: BASO % 0.4 % (0.0-1.0); EOS # 0.1 10*3/uL (0.0-0.4); HEMATOCRIT 45.8 % (42.0-52.0); HEMOGLOBIN 15.9 g/dl (14.0-18.0); LYMPH # 2.7 10*3/uL (1.3-4.4); LYMPH % 25.8 % (27.0-41.0); MEAN CELL VOLUME 95.4 fl (80.0-94.0); MEAN CORPUSCULAR HGB 33.1 pg (27.0-31.0); MEAN CORPUSCULAR HGB CONC 34.7 g/dl (33.0-37.0); MEAN PLATELET VOLUME 8.6 fl (9.6-12.3); MONO # 0.9 10*3/uL (0.1-1.0); MONO % 8.5 % (3.0-9.0); NEUT # 6.6 10*3/uL (2.3-7.9); NEUT % 63.7 % (47.0-73.0); PLATELET COUNT AUTOMATED 254 10*3/uL (130-400); RED CELL DISTRI WIDTH 12.2 % (0-14.5); WHITE BLOOD COUNT 10.4 10*3/uL (4.8-10.8)
[2019-06-19 09:42] LABS: INTERNATIONAL NORM RATIO 0.9 (2.0-3.5)
[2019-06-19 09:47] LABS: ALKALINE PHOSPHATASE 81 U/L (45-117); BUN 9 mg/dl (7-24); CHLORIDE 103 mmol/L (98-107); CREATININE 0.77 mg/dL (0.70-1.30); POTASSIUM 3.8 mmol/L (3.5-5.1); SGOT/AST 9 IU/L (3-35); SGPT/ALT 22 U/L (12-78); SODIUM 133 mmol/L (136-145); TOTAL PROTEIN 7.1 gm/dL (6.4-8.2)
[2019-06-19 09:54] LABS: TROPONIN I < 0.015 ng/ml (<0.045)
[2019-06-19 10:19] VITALS: BP 127/78
[2019-06-19] MEDS ORDERED: NEURONTIN300 MG PO (11:22)
[2019-06-19] MEDS ORDERED: FOSAMAX70 M1 PO (11:23)
[2019-06-19 12:00] VITALS: BP 122/80
[2019-06-19 16:00] VITALS: BP 122/63
[2019-06-19 20:00] VITALS: BP 123/72; BP 145/66
== END 2019-06-19 22:20 | disposition left against medical advice (07) | DRG 190 ==
LOC: ED 09:14 → EDHOLD 10:13 → 5E 10:13
PROVIDERS: Emergency Medicine; ADMIT Internal Medicine
DX: J44.0 Chronic obstructive pulmonary disease with (acute) lower respiratory infection (principal); J18.9 Pneumonia, unspecified organism; E87.1 Hypo-osmolality and hyponatremia; J44.1 Chronic obstructive pulmonary disease with (acute) exacerbation; R07.9 Chest pain, unspecified; E55.9 Vitamin D deficiency, unspecified; I10 Essential (primary) hypertension; F17.210 Nicotine dependence, cigarettes, uncomplicated; E78.5 Hyperlipidemia, unspecified; M81.0 Age-related osteoporosis without current pathological fracture; Z53.21 Procedure and treatment not carried out due to patient leaving prior to being seen by health care provider; K21.9 Gastro-esophageal reflux disease without esophagitis; M54.41 Lumbago with sciatica, right side; D72.810 Lymphocytopenia; Z71.6 Tobacco abuse counseling; Z82.3 Family history of stroke; Z82.49 Family history of ischemic heart disease and other diseases of the circulatory system; Z80.1 Family history of malignant neoplasm of trachea, bronchus and lung; Z83.3 Family history of diabetes mellitus; Z79.899 Other long term (current) drug therapy

== ENCOUNTER → 2019-06-27 | Outpatient (CLI) | payer OTHER ==
[~2019-06-27] MED LIST changes: +FOSAMAX70 M1 PO; +NEURONTIN300 MG PO
== END | disposition home or self-care (01) ==
LOC: RAD 15:33
DX: J18.1 Lobar pneumonia, unspecified organism (principal)

== ENCOUNTER 2019-09-26 12:37 | Emergency (ER) | payer OTHER ==
[~2019-09-26] VITALS: Ht 185.4 cm; Wt 87.5 kg
== END 2019-09-26 14:54 | disposition home or self-care (01) ==
LOC: ED 12:37
DX: S50.01XA Contusion of right elbow, initial encounter (principal); I10 Essential (primary) hypertension; J44.9 Chronic obstructive pulmonary disease, unspecified; K21.9 Gastro-esophageal reflux disease without esophagitis; E78.5 Hyperlipidemia, unspecified; M81.0 Age-related osteoporosis without current pathological fracture; F17.200 Nicotine dependence, unspecified, uncomplicated; Z87.442 Personal history of urinary calculi; W00.0XXA Fall on same level due to ice and snow, initial encounter; Y93.89 Activity, other specified; Y92.89 Other specified places as the place of occurrence of the external cause; Y99.8 Other external cause status

== ENCOUNTER 2019-12-03 13:25 | Emergency (ER) | payer OTHER ==
[2019-12-03] MEDS ORDERED: PREDNISONE20 M1 PO (16:03)
[2019-12-03] MEDS ORDERED: CYCLOBENZAPRINE10 MG PO (16:03)
[2019-12-03] MEDS ORDERED: IBU800 MG PO (16:03)
== END 2019-12-03 16:13 | disposition home or self-care (01) ==
LOC: ED 13:25
DX: M54.5 Low back pain (principal); I10 Essential (primary) hypertension; J45.909 Unspecified asthma, uncomplicated; K21.9 Gastro-esophageal reflux disease without esophagitis; F17.200 Nicotine dependence, unspecified, uncomplicated

== ENCOUNTER 2020-04-08 07:51 | Emergency (ER) | payer OTHER ==
[~2020-04-08] VITALS: Ht 182.8 cm; Wt 90.7 kg
[~2020-04-08 07:51] MED LIST changes: +PREDNISONE20 M1 PO
[2020-04-08 08:40] LABS: BASO # 0.1 10*3/uL (0.0-0.1); BASO % 0.5 % (0.0-1.0); EOS # 0.2 10*3/uL (0.0-0.4); EOS % 1.7 % (1.0-4.0); HEMATOCRIT 45.6 % (42.0-52.0); LYMPH # 2.1 10*3/uL (1.3-4.4); LYMPH % 22.4 % (27.0-41.0); MEAN CELL VOLUME 91.9 fl (80.0-94.0); MEAN CORPUSCULAR HGB 32.3 pg (27.0-31.0); MEAN CORPUSCULAR HGB CONC 35.1 g/dl (33.0-37.0); MEAN PLATELET VOLUME 8.9 fl (9.6-12.3); MONO # 0.7 10*3/uL (0.1-1.0); MONO % 7.4 % (3.0-9.0); NEUT # 6.3 10*3/uL (2.3-7.9); NEUT % 67.4 % (47.0-73.0); PLATELET COUNT AUTOMATED 264 10*3/uL (130-400); RED BLOOD COUNT 4.96 10*6/uL (4.50-5.90); RED CELL DISTRI WIDTH 12.5 % (0-14.5); WHITE BLOOD COUNT 9.4 10*3/uL (4.8-10.8)
[2020-04-08 08:54] LABS: ALBUMIN 3.4 gm/dl (3.1-4.5); ALKALINE PHOSPHATASE 82 U/L (45-117); BUN 12 mg/dl (7-24); CHLORIDE 104 mmol/L (98-107); LIPASE 110 U/L (73-393); POTASSIUM 4.1 mmol/L (3.5-5.1); SGOT/AST 15 IU/L (3-35); SGPT/ALT 32 U/L (12-78); SODIUM 135 mmol/L (136-145); TOTAL PROTEIN 6.9 gm/dL (6.4-8.2)
[2020-04-08 08:58] LABS: ETHYL ALCOHOL < 3.0 mg/dl (<3)
== END 2020-04-08 09:40 | disposition home or self-care (01) ==
LOC: ED 07:51
PROVIDERS: Emergency Medicine
DX: K29.70 Gastritis, unspecified, without bleeding (principal); I10 Essential (primary) hypertension; J45.909 Unspecified asthma, uncomplicated; Z79.899 Other long term (current) drug therapy

== ENCOUNTER → 2020-06-06 | Outpatient (CLI) | payer OTHER ==
[~2020-06-06] MED LIST changes: +CELEXA20 MG PO; +HYDR25T PO; +OMEPRAZOLE MAGN20 M1 PO; +VITAMIN D350 MC1 PO
== END | disposition home or self-care (01) ==
LOC: COVID19 11:11
PROVIDERS: ATTEND Internal Medicine Nephrology
DX: Z20.828 Contact with and (suspected) exposure to other viral communicable diseases (principal)

== ENCOUNTER → 2020-07-22 | Outpatient (CLI) | payer OTHER | END | disposition home or self-care (01) | LOC: RAD 17:35 | PROVIDERS: ATTEND Internal Medicine | DX: M25.561 Pain in right knee (principal) ==

== ENCOUNTER 2020-08-26 08:02 | Emergency (ER) | payer OTHER ==
[~2020-08-26] VITALS: Ht 185.4 cm; Wt 93.9 kg
== END 2020-08-26 10:49 | disposition home or self-care (01) ==
LOC: ED 08:02
DX: M54.5 Low back pain (principal); Z79.899 Other long term (current) drug therapy

== ENCOUNTER 2020-09-12 07:35 | Emergency (ER) | payer OTHER ==
[~2020-09-12] VITALS: Ht 185.4 cm; Wt 89.4 kg
[2020-09-12 08:06] LABS: BASO % 0.4 % (0.0-1.0); EOS # 0.1 10*3/uL (0.0-0.4); EOS % 1.4 % (1.0-4.0); HEMATOCRIT 44.7 % (42.0-52.0); LYMPH # 1.7 10*3/uL (1.3-4.4); LYMPH % 18.1 % (27.0-41.0); MEAN CELL VOLUME 92.5 fl (80.0-94.0); MEAN CORPUSCULAR HGB 32.3 pg (27.0-31.0); MEAN CORPUSCULAR HGB CONC 34.9 g/dl (33.0-37.0); MONO # 0.8 10*3/uL (0.1-1.0); MONO % 8.8 % (3.0-9.0); NEUT # 6.7 10*3/uL (2.3-7.9); PLATELET COUNT AUTOMATED 277 10*3/uL (130-400); RED BLOOD COUNT 4.83 10*6/uL (4.50-5.90); RED CELL DISTRI WIDTH 12.4 % (0-14.5); WHITE BLOOD COUNT 9.4 10*3/uL (4.8-10.8)
[2020-09-12 08:21] LABS: ALBUMIN 3.6 gm/dl (3.1-4.5); ALKALINE PHOSPHATASE 83 U/L (45-117); BUN 7 mg/dl (7-24); CHLORIDE 105 mmol/L (98-107); CREATININE 0.83 mg/dL (0.70-1.30); LIPASE 77 U/L (73-393); SGOT/AST 23 IU/L (3-35); SGPT/ALT 25 U/L (12-78); SODIUM 138 mmol/L (136-145); TOTAL PROTEIN 6.9 gm/dL (6.4-8.2)
[2020-09-12 08:22] LABS: POTASSIUM 3.8 mmol/L (3.5-5.1)
[2020-09-12 08:36] LABS: BILIRUBIN Negative (Negative); BLOOD Negative (Negative); CLARITY Clear (Clear); COLOR Yellow (Yellow); GLUCOSE Negative (Negative); KETONE Negative (Negative); LEUKO ESTERASE Negative (Negative); NITRITE Negative (Negative); UROBILINOGEN 0.2 E.U./dl (0.0-1.0)
[2020-09-12 08:45] LABS: BACTERIA TRACE; EPITHELIAL CELLS 0-2; MUCOUS TRACE; WBC 0-2 wbc/hpf (0-5)
== END 2020-09-12 09:20 | disposition home or self-care (01) ==
LOC: ED 07:35
PROVIDERS: Emergency Medicine
DX: R19.7 Diarrhea, unspecified (principal); J44.9 Chronic obstructive pulmonary disease, unspecified; K21.9 Gastro-esophageal reflux disease without esophagitis; E78.5 Hyperlipidemia, unspecified; I10 Essential (primary) hypertension; Z79.899 Other long term (current) drug therapy

== ENCOUNTER 2020-11-04 06:40 | Emergency (ER) | payer OTHER ==
[~2020-11-04] VITALS: Ht 185.4 cm; Wt 90.7 kg
[2020-11-04 07:54] LABS: BASO % 0.4 % (0.0-1.0); EOS # 0.1 10*3/uL (0.0-0.4); EOS % 1.5 % (1.0-4.0); HEMATOCRIT 47.2 % (42.0-52.0); LYMPH # 1.7 10*3/uL (1.3-4.4); LYMPH % 18.2 % (27.0-41.0); MEAN CORPUSCULAR HGB 31.6 pg (27.0-31.0); MEAN CORPUSCULAR HGB CONC 34.3 g/dl (33.0-37.0); MEAN PLATELET VOLUME 9.1 fl (9.6-12.3); MONO # 0.7 10*3/uL (0.1-1.0); MONO % 7.4 % (3.0-9.0); NEUT # 6.5 10*3/uL (2.3-7.9); NEUT % 72.1 % (47.0-73.0); PLATELET COUNT AUTOMATED 293 10*3/uL (130-400); RED BLOOD COUNT 5.13 10*6/uL (4.50-5.90); RED CELL DISTRI WIDTH 11.9 % (0-14.5); WHITE BLOOD COUNT 9.1 10*3/uL (4.8-10.8)
[2020-11-04 08:07] LABS: ACT PARTIAL THROMBO TIME 30.1 SECONDS (20.0-32.1); INTERNATIONAL NORM RATIO 0.9 (2.0-3.5)
[2020-11-04 08:11] LABS: ALBUMIN 3.5 gm/dl (3.1-4.5); ALKALINE PHOSPHATASE 100 U/L (45-117); BUN 8 mg/dl (7-24); CHLORIDE 106 mmol/L (98-107); POTASSIUM 3.9 mmol/L (3.5-5.1); SGOT/AST 8 IU/L (3-35); SGPT/ALT 25 U/L (12-78); SODIUM 137 mmol/L (136-145)
[2020-11-04 08:13] LABS: TROPONIN I < 0.015 ng/ml (<0.045)
[2020-11-04] MEDS ORDERED: DOXYCYCLINE100 M3 PO (09:35)
[2020-11-04] MEDS ORDERED: PREDNISONE10 MG PO (09:35)
== END 2020-11-04 09:48 | disposition home or self-care (01) ==
LOC: ED 06:40
PROVIDERS: Family Medicine
DX: J32.9 Chronic sinusitis, unspecified (principal); J40 Bronchitis, not specified as acute or chronic; F17.200 Nicotine dependence, unspecified, uncomplicated; Z79.899 Other long term (current) drug therapy; Z98.890 Other specified postprocedural states

== ENCOUNTER 2021-02-17 07:08 | Emergency (ER) | payer OTHER ==
[~2021-02-17] VITALS: Ht 182.8 cm; Wt 90.7 kg
[2021-02-17] MEDS ORDERED: Motrin,Rufen800 MG PO (08:16)
[2021-02-17] MEDS ORDERED: ZITHROMAX250 MG PO (08:16)
[2021-02-17] MEDS ORDERED: FLONASE ALLERG9.9 ML NAS (08:16)
== END 2021-02-17 08:40 | disposition home or self-care (01) ==
LOC: ED 07:08
DX: J01.90 Acute sinusitis, unspecified (principal); F17.200 Nicotine dependence, unspecified, uncomplicated; Z98.890 Other specified postprocedural states; Z79.899 Other long term (current) drug therapy

== ENCOUNTER 2021-03-04 13:39 | Emergency (ER) | payer OTHER ==
[~2021-03-04] VITALS: Ht 185.4 cm; Wt 89.8 kg
[~2021-03-04 13:39] MED LIST changes: +FLONASE ALLERG9.9 ML NAS; +ZITHROMAX250 MG PO
[2021-03-04] MEDS ORDERED: Motrin,Rufen800 MG PO (16:20)
== END 2021-03-04 16:23 | disposition home or self-care (01) ==
LOC: ED 13:39
DX: S20.212A Contusion of left front wall of thorax, initial encounter (principal); F17.200 Nicotine dependence, unspecified, uncomplicated; Z98.890 Other specified postprocedural states; Z79.899 Other long term (current) drug therapy; X50.1XXA Overexertion from prolonged static or awkward postures, initial encounter; Y93.89 Activity, other specified; Y92.89 Other specified places as the place of occurrence of the external cause; Y99.9 Unspecified external cause status

== ENCOUNTER 2021-03-30 13:04 | Emergency (ER) | payer OTHER ==
[~2021-03-30] VITALS: Wt 90.7 kg
[2021-03-30] MEDS ORDERED: CEFDINIR300 MG PO (14:20)
== END 2021-03-30 14:40 | disposition home or self-care (01) ==
LOC: ED 13:04
DX: H65.91 Unspecified nonsuppurative otitis media, right ear (principal); F17.200 Nicotine dependence, unspecified, uncomplicated; Z79.899 Other long term (current) drug therapy; Z98.890 Other specified postprocedural states

== ENCOUNTER 2021-04-30 09:23 | Emergency (ER) | payer OTHER ==
[~2021-04-30] VITALS: Ht 185.4 cm; Wt 90.7 kg
[~2021-04-30 09:23] MED LIST changes: +CEFDINIR300 MG PO
[2021-04-30] MEDS ORDERED: METHOCARBAMOL500 M1 PO (13:26)
[2021-04-30] MEDS ORDERED: IBUPROFEN600 MG PO (13:26)
== END 2021-04-30 13:30 | disposition home or self-care (01) ==
LOC: ED 09:23
DX: S33.5XXA Sprain of ligaments of lumbar spine, initial encounter (principal); F17.200 Nicotine dependence, unspecified, uncomplicated; Z79.899 Other long term (current) drug therapy; Z79.2 Long term (current) use of antibiotics; X50.0XXA Overexertion from strenuous movement or load, initial encounter; Y93.89 Activity, other specified; Y92.69 Other specified industrial and construction area as the place of occurrence of the external cause; Y99.9 Unspecified external cause status

== ENCOUNTER 2021-07-23 08:48 | Emergency (ER) | payer OTHER ==
[~2021-07-23] VITALS: Ht 180.3 cm; Wt 81.6 kg
== END 2021-07-23 10:40 | disposition home or self-care (01) ==
LOC: ED 08:48
DX: R05.9 Cough, unspecified (principal); Z20.822 Contact with and (suspected) exposure to COVID-19; J02.9 Acute pharyngitis, unspecified; J44.9 Chronic obstructive pulmonary disease, unspecified; K21.9 Gastro-esophageal reflux disease without esophagitis; E78.5 Hyperlipidemia, unspecified; I10 Essential (primary) hypertension; Z79.899 Other long term (current) drug therapy

== ENCOUNTER → 2021-07-23 | Outpatient (CLI) | payer OTHER ==
[~2021-07-23] MED LIST changes: +IBUPROFEN600 MG PO; +METHOCARBAMOL500 M1 PO
== END | disposition home or self-care (01) ==
LOC: COVID19 15:55
PROVIDERS: ATTEND Internal Medicine
DX: Z11.52 Encounter for screening for COVID-19 (principal)

== ENCOUNTER → 2021-07-27 | Outpatient (CLI) | payer OTHER ==
[2021-07-27 12:31] LABS: BASO # 0.1 10*3/uL (0.0-0.1); BASO % 0.5 % (0.0-1.0); EOS # 0.3 10*3/uL (0.0-0.4); EOS % 3.5 % (1.0-4.0); HEMATOCRIT 45.7 % (42.0-52.0); LYMPH # 2.7 10*3/uL (1.3-4.4); LYMPH % 27.6 % (27.0-41.0); MEAN CELL VOLUME 94.6 fl (80.0-94.0); MEAN CORPUSCULAR HGB 32.1 pg (27.0-31.0); MEAN CORPUSCULAR HGB CONC 33.9 g/dl (33.0-37.0); MEAN PLATELET VOLUME 8.6 fl (9.6-12.3); MONO # 0.9 10*3/uL (0.1-1.0); MONO % 8.9 % (3.0-9.0); NEUT # 5.7 10*3/uL (2.3-7.9); NEUT % 59.3 % (47.0-73.0); PLATELET COUNT AUTOMATED 271 10*3/uL (130-400); RED BLOOD COUNT 4.83 10*6/uL (4.50-5.90); RED CELL DISTRI WIDTH 12.7 % (0-14.5); WHITE BLOOD COUNT 9.6 10*3/uL (4.8-10.8)
[2021-07-27 12:52] LABS: BUN 10 mg/dl (7-24); CHLORIDE 104 mmol/L (98-107); CREATININE 0.84 mg/dL (0.70-1.30); IRON 68 ug/dL (65-175); POTASSIUM 4.2 mmol/L (3.5-5.1); SODIUM 136 mmol/L (136-145); TOTAL IRON BINDING CAPACITY 372 ug/dl (250-450)
[2021-07-27 13:00] LABS: FREE T4 0.78 ng/dl (0.76-1.46)
[2021-07-27 15:08] LABS: FERRITIN 56.6 ng/mL (22.0-322.0)
== END | disposition home or self-care (01) ==
LOC: LAB 12:16
PROVIDERS: ATTEND Internal Medicine
DX: G25.81 Restless legs syndrome (principal)

== ENCOUNTER 2021-08-10 08:04 | Emergency (ER) | payer OTHER ==
[~2021-08-10] VITALS: Ht 185.4 cm; Wt 90.7 kg
[2021-08-10 09:06] LABS: BASO # 0.1 10*3/uL (0.0-0.1); BASO % 0.8 % (0.0-1.0); EOS # 0.2 10*3/uL (0.0-0.4); HEMATOCRIT 44.8 % (42.0-52.0); LYMPH # 2.5 10*3/uL (1.3-4.4); LYMPH % 27.2 % (27.0-41.0); MEAN CELL VOLUME 93.9 fl (80.0-94.0); MEAN CORPUSCULAR HGB 31.9 pg (27.0-31.0); MEAN CORPUSCULAR HGB CONC 33.9 g/dl (33.0-37.0); MEAN PLATELET VOLUME 9.1 fl (9.6-12.3); MONO # 0.8 10*3/uL (0.1-1.0); MONO % 8.6 % (3.0-9.0); NEUT # 5.5 10*3/uL (2.3-7.9); PLATELET COUNT AUTOMATED 269 10*3/uL (130-400); RED BLOOD COUNT 4.77 10*6/uL (4.50-5.90); RED CELL DISTRI WIDTH 12.6 % (0-14.5)
[2021-08-10 09:29] LABS: ALBUMIN 3.5 gm/dl (3.1-4.5); ALKALINE PHOSPHATASE 82 U/L (45-117); BUN 11 mg/dl (7-24); CHLORIDE 105 mmol/L (98-107); CREATININE 0.76 mg/dL (0.70-1.30); POTASSIUM 3.7 mmol/L (3.5-5.1); SGOT/AST 13 IU/L (3-35); SGPT/ALT 25 U/L (12-78); SODIUM 138 mmol/L (136-145); TOTAL PROTEIN 6.7 gm/dL (6.4-8.2)
== END 2021-08-10 10:45 | disposition home or self-care (01) ==
LOC: ED 08:04
PROVIDERS: Emergency Medicine
DX: G25.81 Restless legs syndrome (principal); Z79.899 Other long term (current) drug therapy; F17.200 Nicotine dependence, unspecified, uncomplicated

== ENCOUNTER 2021-08-17 10:58 | Emergency (ER) | payer OTHER ==
[~2021-08-17] VITALS: Ht 182.8 cm; Wt 90.7 kg
[2021-08-17 12:15] LABS: BASO % 0.5 % (0.0-1.0); EOS # 0.3 10*3/uL (0.0-0.4); HEMATOCRIT 43.6 % (42.0-52.0); LYMPH # 2.1 10*3/uL (1.3-4.4); LYMPH % 24.7 % (27.0-41.0); MEAN CELL VOLUME 92.2 fl (80.0-94.0); MEAN CORPUSCULAR HGB 31.7 pg (27.0-31.0); MEAN CORPUSCULAR HGB CONC 34.4 g/dl (33.0-37.0); MEAN PLATELET VOLUME 8.8 fl (9.6-12.3); MONO # 0.8 10*3/uL (0.1-1.0); MONO % 8.9 % (3.0-9.0); NEUT # 5.3 10*3/uL (2.3-7.9); NEUT % 62.7 % (47.0-73.0); PLATELET COUNT AUTOMATED 249 10*3/uL (130-400); RED BLOOD COUNT 4.73 10*6/uL (4.50-5.90); RED CELL DISTRI WIDTH 12.3 % (0-14.5); WHITE BLOOD COUNT 8.4 10*3/uL (4.8-10.8)
[2021-08-17 12:35] LABS: ALBUMIN 3.6 gm/dl (3.1-4.5); ALKALINE PHOSPHATASE 90 U/L (45-117); BUN 11 mg/dl (7-24); CHLORIDE 105 mmol/L (98-107); POTASSIUM 3.6 mmol/L (3.5-5.1); SGOT/AST 14 IU/L (3-35); SGPT/ALT 29 U/L (12-78); SODIUM 139 mmol/L (136-145); TOTAL PROTEIN 6.9 gm/dL (6.4-8.2)
[2021-08-17] MEDS ORDERED: PREDNISONE20 M1 PO (13:41)
== END 2021-08-17 13:55 | disposition home or self-care (01) ==
LOC: ED 10:58
PROVIDERS: Physician Assistant
DX: R49.0 Dysphonia (principal); J02.9 Acute pharyngitis, unspecified; F17.210 Nicotine dependence, cigarettes, uncomplicated; Z79.899 Other long term (current) drug therapy; Z98.890 Other specified postprocedural states

== ENCOUNTER → 2021-11-11 | Outpatient (CLI) | payer OTHER | END | disposition home or self-care (01) | LOC: RAD 15:26 | PROVIDERS: ATTEND Internal Medicine | DX: M54.50 Low back pain, unspecified (principal) ==

== ENCOUNTER 2022-04-07 06:54 | Inpatient (IN) | payer OTHER ==
[~2022-04-07] VITALS: Ht 182.8 cm; Wt 86.6 kg
[2022-04-07 07:00] VITALS: BP 118/92
[2022-04-07 07:35] LABS: BASO # 0.1 10*3/uL (0.0-0.1); BASO % 0.5 % (0.0-1.0); EOS # 0.2 10*3/uL (0.0-0.4); EOS % 2.2 % (1.0-4.0); HEMATOCRIT 46.4 % (42.0-52.0); LYMPH # 1.9 10*3/uL (1.3-4.4); LYMPH % 19.9 % (27.0-41.0); MEAN CELL VOLUME 91.9 fl (80.0-94.0); MEAN CORPUSCULAR HGB 32.1 pg (27.0-31.0); MEAN CORPUSCULAR HGB CONC 34.9 g/dl (33.0-37.0); MONO # 0.8 10*3/uL (0.1-1.0); MONO % 8.5 % (3.0-9.0); NEUT # 6.5 10*3/uL (2.3-7.9); NEUT % 68.6 % (47.0-73.0); PLATELET COUNT AUTOMATED 271 10*3/uL (130-400); RED BLOOD COUNT 5.05 10*6/uL (4.50-5.90); RED CELL DISTRI WIDTH 12.3 % (0-14.5); WHITE BLOOD COUNT 9.5 10*3/uL (4.8-10.8)
[2022-04-07 07:51] LABS: ALKALINE PHOSPHATASE 79 U/L (45-117); BUN 8 mg/dl (7-24); CHLORIDE 104 mmol/L (98-107); CREATININE 0.81 mg/dL (0.70-1.30); LIPASE 146 U/L (73-393); POTASSIUM 3.7 mmol/L (3.5-5.1); SGOT/AST 11 IU/L (3-35); SGPT/ALT 22 U/L (12-78); SODIUM 136 mmol/L (136-145); TOTAL PROTEIN 6.6 gm/dL (6.4-8.2)
[2022-04-07 08:52] LABS: BILIRUBIN Negative (Negative); BLOOD Negative (Negative); CLARITY Clear (Clear); COLOR Yellow (Yellow); GLUCOSE Negative (Negative); KETONE Negative (Negative); LEUKO ESTERASE Negative (Negative); NITRITE Negative (Negative); PH 7.5 (4.5-8.0); SPECIFIC GRAVITY <= 1.005 (1.001-1.030); UROBILINOGEN 0.2 E.U./dl (0.0-1.0)
[2022-04-07 09:10] LABS: EPITHELIAL CELLS 0-2; RBC 0-2 rbc/hpf (0-2)
[2022-04-07] MEDS ORDERED: ZOSYN 3.373.375 GM/1 IV (13:36)
[2022-04-07] MEDS ORDERED: Lovenox40 MG/0.4 PO (13:36)
[2022-04-07 16:00] VITALS: BP 105/70
[2022-04-07 20:00] VITALS: BP 106/85
[2022-04-08] VITALS: BP 104/64
[2022-04-08 08:00] VITALS: BP 115/86
[2022-04-08 12:00] VITALS: BP 101/74
[2022-04-08 16:00] VITALS: BP 103/67
[2022-04-08] MEDS ORDERED: ASACOL HD800 M1 PO (17:06)
[2022-04-08 20:00] VITALS: BP 119/89
[2022-04-09] VITALS: BP 120/74
[2022-04-09 08:00] VITALS: BP 112/86
[2022-04-09] MEDS ORDERED: CIPRO500 MG PO (09:34)
[2022-04-09] MEDS ORDERED: METRONIDAZOLE500 M1 PO (09:34)
== END 2022-04-09 10:29 | disposition home or self-care (01) | DRG 249 ==
LOC: ED 06:54 → 4E 09:56 → EDHOLD 09:56 → 4E 10:53
PROVIDERS: Emergency Medicine; ADMIT Internal Medicine; ATTEND Internal Medicine
DX: K52.9 Noninfective gastroenteritis and colitis, unspecified (principal); J45.909 Unspecified asthma, uncomplicated; J44.9 Chronic obstructive pulmonary disease, unspecified; K21.9 Gastro-esophageal reflux disease without esophagitis; E78.5 Hyperlipidemia, unspecified; I10 Essential (primary) hypertension; G89.29 Other chronic pain; M54.50 Low back pain, unspecified; M81.0 Age-related osteoporosis without current pathological fracture; G25.81 Restless legs syndrome; Z86.16 Personal history of COVID-19; Z82.3 Family history of stroke; Z85.118 Personal history of other malignant neoplasm of bronchus and lung; Z82.49 Family history of ischemic heart disease and other diseases of the circulatory system

== ENCOUNTER → 2022-07-26 | Outpatient (CLI) | payer OTHER ==
[~2022-07-26] MED LIST changes: +ASACOL HD800 M1 PO; +Lovenox40 MG/0.4 PO; +METRONIDAZOLE500 M1 PO; +ZOSYN 3.373.375 GM/1 IV
== END | disposition home or self-care (01) ==
LOC: RAD 16:30
PROVIDERS: ATTEND Internal Medicine
DX: M43.8X4 Other specified deforming dorsopathies, thoracic region (principal); M25.78 Osteophyte, vertebrae